=== PATIENT | female | born 1990 | race American Indian/Alaskan Native ===

== ENCOUNTER 2020-08-14 18:37 | Emergency (ER) | payer OTHER ==
[2020-08-14 20:25] VITALS: BP 127/71
[2020-08-14] MEDS ORDERED: IBUPROFEN 600 MG TAB PO ONE (20:41)
[2020-08-14] MEDS ORDERED: ACETAMINOPHEN 500 MG TAB PO ONE (20:41)
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
== END 2020-08-14 22:48 | disposition home or self-care (01) ==
LOC: ED 18:37
DX: G44.319 Acute post-traumatic headache, not intractable (principal); M62.838 Other muscle spasm; F41.9 Anxiety disorder, unspecified; F32.9 Major depressive disorder, single episode, unspecified; Z79.899 Other long term (current) drug therapy; Z88.8 Allergy status to other drugs, medicaments and biological substances; V49.49XA Driver injured in collision with other motor vehicles in traffic accident, initial encounter; Y92.410 Unspecified street and highway as the place of occurrence of the external cause; Y93.89 Activity, other specified; Y99.8 Other external cause status
CPT/HCPCS: 70450; 72100; 72125